=== PATIENT | female | born 1970 | race Caucasian/White ===

== ENCOUNTER 2023-05-26 23:30 | Emergency (ER) | payer OTHER, SELFPAY ==
[2023-05-26 23:33] VITALS: BP 175/93; PULSE 67; RESP 18; TEMP 36.8; O2SAT 97; BMI 27.0
--- NOTE | 2023-05-26 23:38 | ECG_ITS ---
Test Reason : CHEST WALL PAIN Blood Pressure : / mmHG Vent. Rate : 061 BPM Atrial Rate : 061 BPM P-R Int : 156 ms QRS Dur : 090 ms QT Int : 410 ms P-R-T Axes : 022 -25 011 degrees QTc Int : 412 ms Normal sinus rhythm Normal ECG No previous ECGs available Referred By: Generic ED Physician Electronically Signed By:Ty Rutledge
--- NOTE | 2023-05-26 23:49 | MHC.EDTECH ---
Patient brought into triage area, EKG taken per order and signed by provider, labs obtained and sent to lab.
[2023-05-26 23:59] LABS: Basophils Absolute Auto 0.1 X10*3/uL (0.0-0.2); Basophils Percent Auto 0.8 % (0-2); Eosinophils Absolute Auto 0.2 X10*3/uL (0.0-0.4); Eosinophils Percent Auto 3.6 % (0-4); Hematocrit 38.6 % (37.0-47.0); Hemoglobin 13.2 g/dl (12.0-16.0); Imm Gran Abs Auto 0.01 X10*3/uL (0.00-0.03); Imm Gran Pct Auto 0.2 % (0.0-0.4); Lymphocytes Absolute Auto 1.8 X10*3/uL (1.2-4.9); MANUAL DIFF FLAG NO; Mean Corpuscular HGB Conc 34.2 g/dl (31.0-35.0); Mean Corpuscular Hemoglobin 28.9 pg (27.0-33.0); Mean Corpuscular Volume 84.6 fL (80.0-98.0); Mean Platelet Volume 9.3 fL (9.4-12.3); Monocytes Absolute Auto 0.4 X10*3/uL (0.1-1.2); Monocytes Percent Auto 6.8 % (2-11); Neutrophils Absolute Auto 3.9 x10*3/uL (2.0-8.3); Neutrophils Percent Auto 60.6 % (45-73); Platelet Count 254 X10*3/uL (160-400); Red Blood Count 4.56 X10*6/uL (4.20-5.50); White Blood Count 6.5 X10*3/uL (4.8-10.8)
[2023-05-27 00:08] VITALS: BP 149/86; PULSE 66; RESP 17; TEMP 36.9; O2SAT 95
[2023-05-27 00:18] LABS: Alanine Aminotransferase 18 U/L (0-31); Albumin Level 4.2 g/dL (3.5-5.0); Alkaline Phosphatase 97 U/L (39-117); Anion Gap 14 (12-20); Aspartate Amino Transferase 15 U/L (5-31); Blood Urea Nitrogen 18 mg/dL (9-16); Calcium 9.3 mg/dL (8.4-10.2); Carbon Dioxide 23 mmol/L (22-29); Chloride 107 mmol/L (96-108); Creatinine Clr Calc Pharmacy 60.8; Estimated Glomerular Filt Rate 55; Glucose Random 107 mg/dL (60-115); Potassium 3.4 mmol/L (3.3-5.1); Sodium 141 mmol/L (135-145); Total Protein 6.9 g/dL (6.5-8.0)
--- NOTE | 2023-05-27 00:25 | ED_ITS ---
HPI - General Adult General Chief complaint: General Medical Stated complaint: High BP Time Seen by Provider: 05/27/23 00:23 Source: patient Mode of arrival: ambulatory Limitations: no limitations History of Present Illness HPI narrative: 52-year-old female with history of hypertension, left subclavian DVT 2012, melanoma x3 with last occurrence in 2009 who presents emergency department for evaluation of chest pain. The patient states that she has been under increased stress secondary to social issues. 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 She points to her sternal area when asked to localize the pain. She states that the pain was a tightness which lasted approximately 30 minutes. She had associated nausea with 1 episode of vomiting. She had nausea with no vomiting. She denied lightheadedness, dizziness, diaphoresis, radiation of the pain to her neck, jaw, arms or back. She denied fever, chills, sore throat, cough, shortness of breath or dyspnea on exertion. She denies swelling of her extremities, she has not gone on any long trips and she has not on estrogen therapy. Related Data Previous Rx's Medication Instructions Recorded lorazepam 1 mg tablet 1 mg PO TID PRN anxiety #10 tabs 05/27/23 Allergies Allergy/AdvReac Type Severity Reaction Status Date / Time Iodinated Contrast Media Allergy Unknown UNKNOWN Verified 05/26/23 23:32 [IVP DYE] Review of Systems 2 Review of Systems: Yes all other systems are reviewed and are negative [facility] Past Medical History [facility] Narrative: Past medical history: Hypertension, left subclavian DVT of unclear etiology 2012 treated with clot retrieval and anticoagulation-no recurrent DVTs in 10 years. Surgical history: Cholecystectomy, hysterectomy. Social history: She denies tobacco use. She occasionally drinks alcohol. She denies drug use. Social History Social History Advance Directives: No Advance Directives Information Provided: No Physical Exam ED Vital Signs: Vital Signs - 24 hr 05/26/23 23:33 05/27/23 00:08 Temperature 98.2 F 98.4 F Pulse Rate 67 66 Respiratory Rate 18 17 Blood Pressure 175/93 H 149/86 H Pulse Oximetry 97 95 Oxygen Delivery Method Room Air Room Air BMI result Body Mass Index 27.0 Vital signs patient elevated blood pressure 175/93 and 149/86 vital signs otherwise unremarkable Exam: General: Awake, alert in no distress Head: Normocephalic, atraumatic EENT: PERRL, Lids normal, sclera normal, conjunctiva normal, nose normal , ears normal, throat without erythema or exudates Neck: Supple, no adenopathy, no trachea midline or C-spine tenderness Lung: breath sounds symmetric, no wheezing, rales or rhonchi Chest: symmetric movement, nontender Heart: regular rate and rhythm, normal S1, S2 no murmurs or rubs Abdomen: soft, non-tender, nondistended, normal bowel sounds Back: no vertebral tenderness, no CVAT Extremities: no deformities, moves all extremities symmetrically Neuro: Awake, alert, oriented, normal speech, moves all extremities symmetrically Psych: Pleasant, cooperative Medical Decision Making Medical Decision Making MDM Narrative: Can see 2-year-old female history of hypertension, left subclavian DVT 2012, melanoma last recurrence 2009 who presents emergency department for evaluation of 2 episodes of chest pain both coming on at rest with 2nd chest pain this evening at 20:30 hours while she was in bed. Patient had associated nausea but no other significant associated symptoms. Vital signs did reveal an elevated blood pressure otherwise unremarkable. Physical examination was normal. Differential diagnosis includes was not limited to myocardial infarction, myocardial ischemia, DVT, PE, costochondritis, gastritis, GERD, anxiety Following evaluation was ordered: CBC, CMP, troponin, EKG, O2 saturation monitoring, cardiac monitoring Patient treated with the following medications: Ativan 1 mg orally 00:51 The patient's physical examination was unremarkable. My interpretation patient's laboratory evaluation is as follows: CBC and CMP were normal. Troponin was below detectable limits. EKG was unremarkable. At this time, I suspect the patient's pain is more consistent with anxiety as opposed to myocardial infarction or other etiologies such as PE or pulmonary embolism. Patient was given Ativan 1 mg orally. She was prescribed Ativan 1 mg t.i.d. PRN. She was advised to follow up with the PCPs discuss further management entry of her anxiety and stress Admission/Observation Consideration of admission/observation: Escalation of care including admission/observation considered Lab Data [facility] Lab Attestation statement: I reviewed the patient's lab results. 05/26/23 23:49 05/26/23 23:49 Labs: Lab Results 05/26/23 Range/Units 23:49 WBC 6.5 (4.8-10.8) X10*3/uL RBC 4.56 (4.20-5.50) X10*6/uL Hgb 13.2 (12.0-16.0) g/dl Hct 38.6 (37.0-47.0) % MCV 84.6 (80.0-98.0) fL MCH 28.9 (27.0-33.0) pg MCHC 34.2 (31.0-35.0) g/dl RDW 13.0 (11.0-16.0) % Plt Count 254 (160-400) X10*3/uL MPV 9.3 L (9.4-12.3) fL Immature Gran % (Auto) 0.2 (0.0-0.4) % Neut % (Auto) 60.6 (45-73) % Lymph % (Auto) 28.0 (20-40) % [place] % (Auto) 6.8 (2-11) % Eos % (Auto) 3.6 (0-4) % Baso % (Auto) 0.8 (0-2) % Lymph # (Auto) 1.8 (1.2-4.9) X10*3/uL [place] # (Auto) 0.4 (0.1-1.2) X10*3/uL Eos # (Auto) 0.2 (0.0-0.4) X10*3/uL Baso # (Auto) 0.1 (0.0-0.2) X10*3/uL Abs Immat Gran (auto) 0.01 (0.00-0.03) X10*3/uL Absolute Neuts (auto) 3.9 (2.0-8.3) x10*3/uL Absolute Nucleated RBC 0.000 (0.0-0.012) X10*3/uL Nucleated RBC % (auto) 0.0 (0.0-0.2) /100WBC Sodium 141 (135-145) mmol/L Potassium 3.4 (3.3-5.1) mmol/L Chloride 107 (96-108) mmol/L Carbon Dioxide 23 (22-29) mmol/L Anion Gap 14 (12-20) BUN 18 H (9-16) mg/dL Creatinine 1.06 (0.5-1.4) mg/dL Estim Creat Clear Calc 60.8 Estimated GFR 55 Random Glucose 107 (60-115) mg/dL Calcium 9.3 (8.4-10.2) mg/dL Total Bilirubin 1.0 (0.0-1.0) mg/dL AST 15 (5-31) U/L ALT 18 (0-31) U/L Alkaline Phosphatase 97 (39-117) U/L Total Protein 6.9 (6.5-8.0) g/dL Albumin 4.2 (3.5-5.0) g/dL Independent Interpretation I performed an independent interpretation of an: EKG Interpretation: My interpretation patient's 12 EKG done at 23:43 hours is as follows: Normal sinus rhythm rate of 61, normal DC interval, QRS duration QTC interval, no ST segment elevation, no ST segment depression, no PACs, no PVCs, no T-wave abnormalities-this is a normal EKG. Prescription Management I considered prescription management with: Other (Antianxiety medications) Chronic Conditions Patient?s care impacted by: Hypertension Discharge Plan Discharge Clinical Impression: Anxiety Chest pain Qualifiers: Chest pain type: other chest pain Qualified Code(s): R07.89 - Other chest pain Patient Disposition: Home, Self-Care Instructions: Chest Pain (ED), Anxiety (ED) Additional Instructions: Your blood work was normal. Your EKG was unremarkable. At this time I believe that your chest pain and elevated blood pressure was caused by stress and anxiety which can be very powerful. Take Ativan 1 mg pills, 1 pill every 6 hours as needed for anxiety. ?This medication will make you sleepy, do not drive or work while taking this medication. ?This medication can be addicting, if your concerned about addiction you can ask the pharmacist for less medications or do not get the prescription filled. You should consider talking to your doctor about getting further treatment for stress and anxiety. Follow-up with your doctor in 2 days. Please return to the emergency department if your symptoms get worse or if you develop any symptoms that are concerning to you. Prescriptions: New lorazepam 1 mg tablet 1 mg PO TID PRN (Reason: anxiety) Qty: 10 0RF Rx Instructions: Patient may ask for partial fill
[2023-05-27 00:33] LABS: Troponin-I High Sensitivity < 2.7 ng/L (<3.5-17.0)
[2023-05-27] MEDS: LORazepam 1 MG TABLET PO (01:08)
[2023-05-27 01:15] VITALS: BP 142/75; PULSE 61; RESP 16; O2SAT 97
== END 2023-05-27 01:16 | disposition home or self-care (01) ==
PROVIDERS: Emergency Provider Emergency Medicine Emergency Medical Services; PCP Internal Medicine
DX: R07.89 Other chest pain (principal); F41.9 Anxiety disorder, unspecified; I10 Essential (primary) hypertension; Z79.899 Other long term (current) drug therapy; Z86.718 Personal history of other venous thrombosis and embolism
CPT/HCPCS: 36415; 80053; 84484; 85025; 93005; 99283; 99284

== ENCOUNTER → 2023-05-26 23:38 | Outpatient (BNV) | payer OTHER, SELFPAY | PROVIDERS: Emergency Provider Emergency Medicine Emergency Medical Services; PCP Internal Medicine; Visit Provider Internal Medicine Cardiovascular Disease | DX: R07.9 Chest pain, unspecified (principal) | CPT/HCPCS: 93010 ==

== ENCOUNTER 2024-01-17 14:35 | Outpatient (REF) | payer OTHER, SELFPAY | END 2024-01-17 14:36 | disposition home or self-care (01) | LOC: CF 14:35 | DX: Z13.89 Encounter for screening for other disorder (principal) ==

== ENCOUNTER 2024-01-18 07:54 | Outpatient (AMB) | payer OTHER, SELFPAY ==
--- NOTE | 2024-01-18 08:35 | A.OFFVIS_ITS ---
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 Patient reports on Labor Day weekend she tripped and felt a tear in her leg, while she went to help prevent a family member from falling. No previous tx. She was seen by Dr. Gustafson who ordered an MRI and referred to orthopedics. Her pain is located at the posterior aspect of knee that radiates up to her buttocks. Denies numbness or tingling. 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 She reports on Labor she tripped and felt a tear in her leg while she went to help prevent a family member from falling. She was seen by Dr. Gustafson who ordered an MRI and referred her to our office. She currently states she has pain and weakness at the posterior aspect of her knee that radiates up to her buttock. Her pain is aggravated with sitting, standing, lifting and ambulation that makes her unable to use stairs or shave her leg. She denies any numbness or tingling. She has not had any treatment in the past. 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[employer] Review of Systems Const All systems reviewed & are unremarkable except as noted in HPI and below Physical Exam Vital Signs: BMI result Body Mass Index 26.9 Const General: cooperative, healthy appearing, comfortable, no acute distress, well developed and alert Orientation/consciousness: patient oriented x3 HEENT Head: Yes normal to inspection, Yes normocephalic and Yes atraumatic Eyes General: appearance normal, both eyes and all related structures Resp Effort & Inspection: normal respiratory effort and able to speak in complete sentences Cardio Rate: regular rate Peripheral pulses: Peripheral pulses 2+ throughout GI Palpation (GI): Soft to palpation Skin Lesions: no lesions Rashes: no rashes Neuro General: patient oriented x3 Extrem Other: Right leg: Normal to inspection. She does have some tenderness that originates behind knee up in to the buttock region at insertion point of the hamstring tendon to the ischial tuberosity. She has significant weakness with hip extension when compared to the contralateral side. No pain with hip flexion. No pain with hip abduction or adduction. No pain with ROM of hip. NVI. Results Reviewed Results Reviewed: Assessment & Plan Assessment & Plan (1) Right hamstring muscle strain: Code(s): S76.311A - Strain of muscle, fascia and tendon of the posterior muscle group at thigh level, right thigh, initial encounter Category: Medical Plan I discussed the extent of her injury and explained that her evulsion injury is not a complete tear at the insertion point and given she can activate the muscle there is no need for surgical intervention at this time. She will begin a course of physical therapy to work on stretching and strengthening exercises. I explained this could potentially take about 6-8 weeks for complete recovery. She will work on physical therapy, increase activities as tolerated and see me back as needed. Orders: Orders 2 PT Evaluation and Treatment Today S76.311A - Strain of muscle, fascia and tendon of the posterior muscle group at thigh level, right thigh, initial encounter Patient Instructions: Scribed for Pao Tong PA-C, by Forest Duran medical claims assistant, on 01/18/2024 at 8:15 AM EST.? I, Pao Tong PA-C, have personally reviewed and agree with the information entered by the scribe. Coding Level of Care Code New Pt Level 3 (63951) Complex EM visit Add On G2211 Diagnoses Right hamstring muscle strain S76.311A
[2024-01-18 08:41] VITALS: BMI 26.9
== END 2024-01-18 09:00 | disposition home or self-care (01) ==
PROVIDERS: PCP Internal Medicine; Visit Provider Physician Assistant
DX: S76.311A Strain of muscle, fascia and tendon of the posterior muscle group at thigh level, right thigh, initial encounter (principal)
CPT/HCPCS: 99203; G2211

== ENCOUNTER → 2024-01-18 07:54 | Outpatient (BNVA) | payer OTHER, SELFPAY | PROVIDERS: PCP Internal Medicine; Visit Provider Physician Assistant | DX: S76.311A Strain of muscle, fascia and tendon of the posterior muscle group at thigh level, right thigh, initial encounter (principal) | CPT/HCPCS: 99202 ==